=== PATIENT | female | born 1985 | race Two or more races ===

== ENCOUNTER 2016-11-02 10:17 | Emergency (ER) | payer MEDICAID, OTHER ==
[~2016-11-02] VITALS: Ht 157.5 cm; Wt 86.2 kg
[~2016-11-02 10:17] MED LIST: CITA-77 PO
[2016-11-02] MEDS ORDERED: SODIUM CHLORIDE 0.9% 1,000 ML IV ONE (10:45)
[2016-11-02] MEDS ORDERED: DEXTROSE (50%) 50ML SYRG IV ONE (10:45)
[2016-11-02 10:46] VITALS: BP 95/47
[2016-11-02] MEDS ORDERED: KETOROLAC TROMETH 30 MG/ML 1ML VIAL IV ONE (11:00)
[2016-11-02 11:09] LABS: Urine Bilirubin Negative (Negative); Urine Blood Negative /uL (Negative); Urine Color Yellow (Yellow); Urine Glucose Normal (Normal); Urine Mucus FEW (None Seen); Urine Nitrite Negative (Negative); Urine RBC 4 /hpf (0 - 4); Urine Squamous Epithelial Cell MOD /hpf (<5); Urine Urobilinogen Normal (Negative); Urine pH 5.5 (5.0-8.0)
[2016-11-02 11:15] LABS: Basophils # (auto) 0 uL; Basophils % (auto) 0.2 % (0.0-2.0); CONDITION Y; DEFINITIVE SEE PRINTOUT; Eosinophils # (auto) 0 uL; Eosinophils % (auto) 0.4 % (0.0-7.0); Hematocrit 38.3 % (36.0-46.0); Hemoglobin 12.3 g/dL (12.2-16.2); Lymphocytes # (auto) 1.3 uL; Lymphocytes % (auto) 19.3 % (10.0-50.0); Mean Corpuscular Hgb Conc. 32.2 g/dL (32.0-36.0); Mean Corpuscular Volume 80.6 fL (80.0-100.0); Mean Platelet Volume 9.5 fL (7.4-10.4); Monocytes # (auto) 0.6 uL; Monocytes % (auto) 8.5 % (0.0-12.0); Neutrophils # (auto) 4.8 uL; Neutrophils % (auto) 71.6 % (37.0-80.0); Platelet Count (auto) 283 10^3/uL (140-450); Red Cell Distribution Width 14.6 % (11.6-16.0); White Blood Cell 6.7 10^3/uL (4.4-10.8)
[2016-11-02 11:20] LABS: Urine Ketone 3+ (Negative)
[2016-11-02 11:34] LABS: Albumin 3.3 g/dL (3.4-5.0); Alkaline Phosphatase 59 U/L (45-117); Amylase 28 U/L (25-115); Anion Gap 7 (5-15); Aspartate Aminotransferase 7 U/L (15-37); BUN/Creatinine Ratio 9.4; Bilirubin, Total 0.7 mg/dL (0.2-1.0); Blood Urea Nitrogen 6 mg/dL (7-18); Calcium 8.6 mg/dL (8.5-10.1); Carbon Dioxide 25 mmol/L (21-32); Chloride 108 mmol/L (98-107); GFR African American 141 mL/min; GFR Non-African American 117 mL/min; Glucose 80 mg/dL (74-106); Potassium 4.5 mmol/L (3.5-5.1); Sodium 140 mmol/L (136-145); Total Protein 7.3 g/dL (6.4-8.2)
== END 2016-11-02 14:06 | disposition home or self-care (01) ==
LOC: EDBD 10:17 → ER 10:17
DX: E86.0 Dehydration (principal); N39.0 Urinary tract infection, site not specified; R55 Syncope and collapse; Z79.899 Other long term (current) drug therapy; R06.02 Shortness of breath
CPT/HCPCS: 36415; 70450; 71020; 74176; 80053; 81001; 81025; 82150; 82962; 83690; 84484; 84702; 85025; 96361; 96374; 96375; 99285; J1885; J7030; J7042